=== PATIENT | male | born 1970 | race Caucasian/White ===

== ENCOUNTER 2019-09-27 15:01 | Emergency (ER) | payer OTHER ==
[~2019-09-27] VITALS: Ht 170.2 cm; Wt 83.9 kg
[2019-09-27] MEDS ORDERED: PEPCID AC20 MG PO (20:06)
== END 2019-09-27 20:31 | disposition home or self-care (01) ==
LOC: ER 15:01
DX: R42 Dizziness and giddiness (principal); Z20.828 Contact with and (suspected) exposure to other viral communicable diseases

== ENCOUNTER 2020-03-19 12:06 | Emergency (ER) | payer OTHER ==
[~2020-03-19] VITALS: Ht 170.2 cm; Wt 81.6 kg
[~2020-03-19 12:06] MED LIST: PEPCID AC20 MG PO
[2020-03-19] MEDS ORDERED: BUTALBIT-ACETA1 EACH PO (15:56)
[2020-03-19] MEDS ORDERED: VOLTAREN-XR100 MG PO (15:56)
[2020-03-19] MEDS ORDERED: SKELAXIN800 MG PO (15:57)
== END 2020-03-19 16:02 | disposition home or self-care (01) ==
LOC: ER 12:06
DX: G44.201 Tension-type headache, unspecified, intractable (principal)

== ENCOUNTER 2021-10-25 11:46 | Emergency (ER) | payer OTHER ==
[~2021-10-25] VITALS: Ht 170.2 cm; Wt 78.9 kg
[~2021-10-25 11:46] MED LIST changes: +BUTALBIT-ACETA1 EACH PO; +SKELAXIN800 MG PO; +VOLTAREN-XR100 MG PO
== END 2021-10-25 18:04 | disposition home or self-care (01) ==
LOC: ER 11:46
DX: R10.9 Unspecified abdominal pain (principal)